=== PATIENT | male | born 1985 | race Caucasian/White ===

== ENCOUNTER 2017-03-29 16:47 | Emergency (ER) | payer OTHER ==
[~2017-03-29] VITALS: Ht 170.2 cm; Wt 75.0 kg
[2017-03-29 16:55] VITALS: TEMP 36.7; Ht 170.2 cm; Wt 75.0 kg
[2017-03-29] MEDS ORDERED: ALBU18002 INH (17:03)
--- NOTE | 2017-03-29 17:56 | DIAGNOSTIC IMAGING REPORT ---
LEFT ANKLE MIN 3 VIEWS ROUTINE CLINICAL HISTORY: Lateral left ankle pain following injury. COMPARISON: None FINDINGS: Alignment of the left ankle is anatomic. There is no acute fracture. The talar dome is intact. There is moderate lateral ankle soft tissue swelling. IMPRESSION: 1. No acute fracture or dislocation of the left ankle. 2. Moderate lateral ankle soft tissue swelling. Electronically signed by: Emiliano Epps M.D. 03/29/2017 5:55 PM Dictated Date/Time: 03/29/2017 5:54 PM
[2017-03-29 18:31] VITALS: BP 113/73; PULSE 67; O2SAT 97
--- NOTE | 2017-03-29 18:31 | EMERGENCY ROOM VISIT NOTE ---
ED Visit Note First contact with patient: 17:00 CHIEF COMPLAINT: Ankle pain HISTORY OF PRESENT ILLNESS: This 32-year-old male patient presents to the emergency department ambulatory after sustaining an injury to the left ankle and foot with a twisting, inversion motion yesterday. The patient states that he was running through campus when he was running down stairs and tripped, rolling his left ankle. He did not fall. He states that he was able to walk initially, but he has had increasing pain and swelling today. He denies pain of the foot. He rates his discomfort a 0/10 at rest, but states it is painful to bear weight on the ankle. He denies previous injuries to this ankle. He has been icing the ankle and taking ibuprofen. He denies any numbness or weakness. He denies any pain of the knee. REVIEW OF SYSTEMS: A 6 system review of systems was completed with positives and pertinent negatives listed in the HPI. ALLERGIES: Lactose, penicillins MEDICATIONS: Albuterol inhaler PMH: No significant past medical history. SOCIAL HISTORY: The patient is from out of town and is in town for work. PHYSICAL EXAM: Vital Signs: Reviewed Nurse's notes, vital signs stable. GENERAL : This is a 32-year-old male, no acute distress, but appears in pain, well- developed, well-nourished. MENTAL STATUS: Alert, oriented to person place and time, and cooperative. MUSCULOSKELETAL: The left ankle is swollen and tender over the lateral malleolus, but the skin is intact and there is no ligamentous instability. There is no fifth metatarsal tenderness. There is no tenderness over the rest of the foot. There is no calf or tibia/fibular tenderness. There is no visual deformity. The foot and toes are warm and well-perfused. Dorsalis pedis pulse 2+. Sensation to pain and light touch is intact. Capillary refill less than 2 seconds. RADIOGRAPHIC FINDINGS: LEFT ANKLE MIN 3 VIEWS ROUTINE CLINICAL HISTORY: Lateral left ankle pain following injury. COMPARISON: None FINDINGS: Alignment of the left ankle is anatomic. There is no acute fracture. The talar dome is intact. There is moderate lateral ankle soft tissue swelling. IMPRESSION: 1. No acute fracture or dislocation of the left ankle. 2. Moderate lateral ankle soft tissue swelling. EMERGENCY DEPARTMENT COURSE: I examined the patient. X-rays of the left ankle were reviewed by myself and read by radiology and reveal no acute fractures. Gel ankle splint was applied to the ankle under my direction and the position was satisfactory. Neurovascular status was rechecked and intact. The patient was instructed on the use of crutches. Conservative measures were discussed. He will follow-up with orthopedics at home as needed. The patient was discharged home in good condition. Blood pressure screening: Patient was found to have normal blood pressure on screening and does not require follow-up. Medication reconciliation: I attest that I have personally reviewed the patient 's current medication list. DIAGNOSIS: Left ankle sprain Current/Historical Medications Scheduled PRN Albuterol Sulfate (Proair Respiclick), 2 PUFFS INH UD PRN for Prior to Exercise/ SOB/Wheezing Allergies Coded Allergies: Lactose. (Verified Allergy, Mild, GI symptoms, 03/29/17) Penicillins (Verified Allergy, Unknown, Unknown, 03/29/17) Vital Signs Date Time Temp Pulse Resp B/P (MAP) Pulse Ox O2 Delivery O2 Flow Rate FiO2 03/29/17 18:31 67 18 113/73 97 Room Air 03/29/17 16:55 36.7 68 16 136/79 98 Room Air Departure Information Impression Primary Impression: Left ankle sprain Dispostion Home / Self-Care Condition GOOD Referrals No Doctor, Assigned (PCP) Patient Instructions Ankle Sprain, [facility] Additional Instructions You have been treated in the Emergency Department for an Ankle sprain. For pain control, you can use the following [id number] medicines (if >12 yo): - Regular strength (325mg/tab) Tylenol (acetaminophen) 2 tabs every 4-6 hours as needed. Do not exceed 12 tablets in a 24 hour period. Avoid taking more than 4 grams (4000 mg) of Tylenol per day. This includes any other sources of acetaminophen you may take on a regular basis. - Regular strength (200 mg/tab) Advil (ibuprofen) 1-2 tabs every 4-6 hours as needed. Do not exceed a dose of 3200 mg per day. If this is a recent injury (<24 hrs), ice can be applied to the area of pain for the first 3 days to help decrease pain and inflammation. Follow up with your orthopedic surgeon for persistent or worsening symptoms. Keep the ankle brace/splint in place and use the crutches you have been provided to keep ALL weight off of the ankle until weight bearing is tolerable. Return to the Emergency Department if your current symptoms worsen despite treatment course outlined above, or if you develop any of the following symptoms : intractable pain despite aforementioned treatment course or new onset of numbness or tingling of the foot.
== END 2017-03-29 18:38 | disposition home or self-care (01) ==
LOC: C.EDB 16:53 → C.EDD 18:38
DX: S93.402A Sprain of unspecified ligament of left ankle, initial encounter (principal); W18.40XA Slipping, tripping and stumbling without falling, unspecified, initial encounter; Y92.214 College as the place of occurrence of the external cause